=== PATIENT | female | born 1995 | race Hispanic/Latino ===

== ENCOUNTER 2019-06-10 13:02 | Emergency (ER) | payer BC ==
[2019-06-10] MEDS ORDERED: HYDROCODONE/APAP 5/325 MG TAB ONE (15:04)
[2019-06-10] MEDS ORDERED: TETANUS & DIPHTHERIA TOX,ADULT 0.5 ML VIAL ONE (15:29)
--- NOTE | 2019-06-10 15:37 | EDPHYS ---
Physician Documentation [facility] Name: Sunita Avila Age: 23 yrs Sex: Female : 1995 Arrival Date: 06/10/2019 Time: 13:03 Bed 10 Private MD: ED Physician Devante Patton HPI: 06/10 15:08 This 23 yrs old Female presents to ER via Ambulatory with complaints of Toe snw Swelling. 15:08 Onset: The symptoms/episode began/occurred suddenly, 2 day(s) ago, and became snw persistent. Associated signs and symptoms: The patient has no apparent associated signs or symptoms. Modifying factors: The patient symptoms are alleviated by nothing. The patient has not experienced similar symptoms in the past. It is unknown whether or not the patient has recently seen a physician. pt does not recall trauma to area. 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 - Social history:: Smoking status: Patient/guardian denies using tobacco. - Ebola Screening: : Patient denies exposure to infectious person Patient denies travel to an Ebola-affected area in the 21 days before illness onset. ROS: 15:05 Constitutional: Negative for fever, chills, and weight loss, Eyes: Negative for injury, snw pain, redness, and discharge, ENT: Negative for injury, pain, and discharge, Neck: Negative for injury, pain, and swelling, Cardiovascular: Negative for chest pain, palpitations, and edema, Respiratory: Negative for shortness of breath, cough, wheezing, and pleuritic chest pain, Abdomen/GI: Negative for abdominal pain, nausea, vomiting, diarrhea, and constipation, Back: Negative for injury and pain, : Negative for injury, bleeding, discharge, and swelling, MS/Extremity: Negative for injury and deformity, + severe pain to right 2nd toe Skin: Negative for injury, rash, and discoloration, Neuro: Negative for headache, weakness, numbness, tingling, and seizure. Exam: 14:55 Constitutional: This is a well developed, well nourished patient who is awake, alert, snw and in no acute distress. Head/Face: Normocephalic, atraumatic. Eyes: Pupils equal round and reactive to light, extra-ocular motions intact. Lids and lashes normal. Conjunctiva and sclera are non-icteric and not injected. Cornea within normal limits. Periorbital areas with no swelling, redness, or edema. ENT: Nares patent. No nasal discharge, no septal abnormalities noted. Tympanic membranes are normal and external auditory canals are clear. Oropharynx with no redness, swelling, or masses, exudates, or evidence of obstruction, uvula midline. Mucous membranes moist. Neck: Trachea midline, no thyromegaly or masses palpated, and no cervical lymphadenopathy. Supple, full range of motion without nuchal rigidity, or vertebral point tenderness. No Meningismus. Chest/axilla: Normal chest wall appearance and motion. Nontender with no deformity. No lesions are appreciated. Cardiovascular: Regular rate and rhythm with a normal S1 and S2. No gallops, murmurs, or rubs. Normal PMI, no JVD. No pulse deficits. Respiratory: Lungs have equal breath sounds bilaterally, clear to auscultation and percussion. No rales, rhonchi or wheezes noted. No increased work of breathing, no retractions or nasal flaring. Abdomen/GI: Soft, non-tender, with normal bowel sounds. No distension or tympany. No guarding or rebound. No evidence of tenderness throughout. Back: No spinal tenderness. No costovertebral tenderness. Full range of motion. Neuro: Awake and alert, GCS 15, oriented to person, place, time, and situation. Cranial nerves II-XII grossly intact. Motor strength 5/5 in all extremities. Sensory grossly intact. Cerebellar exam normal. Normal gait. Psych: Awake, alert, with orientation to person, place and time. Behavior, mood, and affect are within normal limits. 14:55 Musculoskeletal/extremity: Extremities: grossly normal except: noted in the right second toe: decreased ROM, ecchymosis, erythema, pain, ROM: limited active range of motion due to pain, limited passive range of motion due to pain, Pulses: are normal with no appreciated deficits, Severe pain noted. 14:55 Skin: Appearance: normal except for affected area, cellulitis, that is mild, on the right second toe minimal spread to dorsal foot and tmt of great toe. Vital Signs: 13:26 BP 115 / 79; Pulse 101; Resp 14; Temp 99.2(TE); Pulse Ox 100% on R/A; Weight 56.7 kg; ss Height 5 ft. 1 in. (154.94 cm); Pain 0/10; 13:26 Body Mass Index 23.62 (56.70 kg, 154.94 cm) ss MDM: 13:54 Patient medically screened. jan 15:38 Data reviewed: vital signs, nurses notes. Data interpreted: Pulse oximetry: on room air snw is 100 %. Interpretation: normal. Counseling: I had a detailed discussion with the patient and/or guardian regarding: the historical points, exam findings, and any diagnostic results supporting the discharge/admit diagnosis, radiology results, the need for outpatient follow up, to return to the emergency department if symptoms worsen or persist or if there are any questions or concerns that arise at home. Special discussion: I discussed in detail with the patient the higher chance of wound infection based on his presenting history. Based on the history and exam findings, there is no indication for further emergent testing or inpatient evaluation. I discussed with the patient/guardian the need to see the primary care provider for further evaluation of the symptoms. 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 Exp: ss 06/28/2021. Lot #: [id number]. } Route: IM; Site: right deltoid; 15:51 Follow up: Response: No adverse reaction ss Disposition: 06/10/19 15:36 Discharged to Home. Impression: Cellulitis of right toe. - Condition is Stable. - Discharge Instructions: Cast or Splint Care, Adult, Cellulitis, Adult, VIS, Tetanus, Diphtheria (Td) - CDC, Heat Therapy. - Prescriptions for Clindamycin HCl 300 mg Oral Capsule - take 1 capsule by ORAL route every 6 hours for 10 days; 40 capsule. Ultram 50 mg Oral Tablet - take 1 tablet by ORAL route every 6 hours As needed; 12 tablet. - Medication Reconciliation Form, Thank You Letter, Antibiotic Education, Prescription Opioid Use form. - Follow up: Emergency Department; When: As needed; Reason: Fever > 102 F, Worsening of condition. Follow up: Private Physician; When: 2 - 3 days; Reason: Recheck today's complaints, Continuance of care, Re-evaluation by your physician. Addendum: 06/18/2019 11:03 Co-signature as Attending Physician, Devante Patton MD I agree with the assessment and c mcadams plan of care. Signatures: Dispatcher [employer] EDWY Devante Patton MD MD cha Therrien, Shelly, SAGAR-C WIND UP WORKER-Tsering House RN RN ss Corrections: (The following items were deleted from the chart) 06/10 16:02 15:36 06/10/2019 15:36 Discharged to Home. Impression: Cellulitis of right toe. ss Condition is Stable. Forms are Medication Reconciliation Form, Thank You Letter, Antibiotic Education, Prescription Opioid Use. Follow up: Emergency Department; When: As needed; Reason: Fever > 102 F, Worsening of condition. Follow up: Private Physician; When: 2 - 3 days; Reason: Recheck today's complaints, Continuance of care, Re-evaluation by your physician. snw
--- NOTE | 2019-06-10 15:37 | ER ---
Nurse's Notes [facility] Name: Sunita Avila Age: 23 yrs Sex: Female : 1995 Arrival Date: 06/10/2019 Time: 13:03 Bed 10 Private MD: Diagnosis: Cellulitis of right toe Presentation: 06/10 13:25 Presenting complaint: Patient states: "The other night my toe started hurting and then ss last night it got way worse.". Transition of care: patient was not received from another setting of care. Onset of symptoms was June 09, 2019. Risk Assessment: Do you want to hurt yourself or someone else? Patient reports no desire to harm self or others. Initial Sepsis Screen: Does the patient meet any 2 criteria? No. Patient's initial sepsis screen is negative. Does the patient have a suspected source of infection? No. Patient's initial sepsis screen is negative. Care prior to arrival: None. 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 - Social history:: Smoking status: Patient/guardian denies using tobacco. - Ebola Screening: : Patient denies exposure to infectious person Patient denies travel to an Ebola-affected area in the 21 days before illness onset. Screenin:37 Abuse screen: Denies threats or abuse. Denies injuries from another. Nutritional ss screening: No deficits noted. Tuberculosis screening: Never had TB. Fall Risk None identified. Assessment: 13:55 General: Appears in no apparent distress. comfortable, Behavior is calm, cooperative, ss Denies fever, feeling ill, fatigue, chills. Pain: Complains of pain in right second toe Pain currently is 0 out of 10 on a pain scale. at worst was 10 out of 10 on a pain scale. Quality of pain is described as tender, Pain began 1 day ago. Is continuous, Aggravated by walking. Neuro: Level of Consciousness is awake, alert, obeys commands, Oriented to person, place, time, situation. Cardiovascular: Pulses are palpable in right dorsalis pedis artery and left dorsalis pedis artery. Respiratory: Airway is patent Respiratory effort is even, unlabored, Respiratory pattern is regular, symmetrical. GI: Patient currently denies diarrhea, nausea, tolerance of food, vomiting. EENT: Nares are clear Oral mucosa is moist. Derm: small area of redness to R second toe. Vital Signs: 13:26 BP 115 / 79; Pulse 101; Resp 14; Temp 99.2(TE); Pulse Ox 100% on R/A; Weight 56.7 kg; ss Height 5 ft. 1 in. (154.94 cm); Pain 0/10; 13:26 Body Mass Index 23.62 (56.70 kg, 154.94 cm) ss ED Course: 13:03 Patient arrived in ED. as 13:26 Triage completed. ss 13:26 Arm band placed on right wrist. ss 13:50 Natalia Sheridan FNP-C is PHCP. snw 13:50 Devante Patton MD is Attending Physician. snw 14:36 Tsering Layne RN is Primary Nurse. ss 14:37 Patient has correct armband on for positive identification. Bed in low position. Call ss light in reach. 15:30 Foot Right 3 View XRAY In Process Unspecified. EDMS 16:01 No provider procedures requiring assistance completed. Patient did not have IV access ss during this emergency room visit. Ortho shoe applied to right foot. 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 Exp: ss 06/28/2021. Lot #: [id number]. } Route: IM; Site: right deltoid; 15:51 Follow up: Response: No adverse reaction ss Outcome: 15:36 Discharge ordered by . snw 16:01 Discharged to home ambulatory, with family. ss 16:01 Condition: good 16:01 Discharge instructions given to patient, family, Instructed on discharge instructions, follow up and referral plans. medication usage, Demonstrated understanding of instructions, follow-up care, medications, Prescriptions given X 2. 16:02 Patient left the ED. ss Signatures: Dispatcher [employer] EDNatalia Nunez, GAS BLENDER-C GAS BLENDER-Andreww Soledad Tomlinson Shelby, RN RN ss
--- NOTE | 2019-06-10 15:40 | RAD REPORT ---
EXAM DESCRIPTION: RAD - Foot Right 3 View - 06/10/2019 3:33 pm CLINICAL HISTORY: Right foot pain FINDINGS: No fracture or dislocation is seen No bone or joint abnormality
[2019-06-10 16:36] VITALS: BP 115/79; TEMP 99.2; O2SAT 100
== END 2019-06-10 16:02 | disposition home or self-care (01) ==
LOC: ER 13:02
DX: L03.031 Cellulitis of right toe (principal); Z88.6 Allergy status to analgesic agent; Z23 Encounter for immunization
CPT/HCPCS: 90471; 90714; 99284

== ENCOUNTER 2021-01-07 13:33 | Emergency (ER) | payer BC ==
[2021-01-07 14:43] LABS: Urine Blood Negative (Negative); Urine Glucose Negative (Negative); Urine Protein Negative (Negative); Urine Specific Gravity >=1.030 (1.005-1.030); Urine pH 6.5 (5.0-7.0)
[2021-01-07 15:18] LABS: Urine Specific Gravity/Preg >1.030 (1.005-1.030)
[2021-01-07 17:32] LABS: Absolute Lymphocytes (CBC) 2.4 K/uL (0.7-4.9); Basophils % 0.6 % (0-1.3); Lymphocytes % 31.7 % (15.3-44.8); MPV 7.6 fL (7.6-11.3); RBC Red Blood Cell Count 4.62 M/uL (3.86-4.86)
--- NOTE | 2021-01-07 17:56 | RAD REPORT ---
EXAM DESCRIPTION: CTAbdomen Pelvis W Contrast - 01/07/2021 5:46 pm CLINICAL HISTORY: Abdominal pain. abd pain COMPARISON: No comparisons TECHNIQUE: Biphasic CT imaging of the abdomen and pelvis was performed with 100 ml non-ionic IV cont rast. All CT scans are performed using dose optimization technique as appropriate and may include automated exposure control or mA/KV adjustment according to patient size. FINDINGS: The lung bases are clear. The liver, spleen, pancreas, adrenal glands and kidneys are within normal limits. No bowel obstruction or free air, or abscess. Small volume of prior free fluid. The appendix is norm al. No evidence of significant lymphadenopathy. No suspicious bony findings. IMPRESSION: No acute intra-abdominal or pelvic finding. Pelvic free fluid which is likely physiologi c.
[2021-01-07 17:59] LABS: ALT/SGPT 18 U/L (12-78); AST/SGOT 10 U/L (15-37); Albumin 4.1 g/dL (3.4-5.0); Alkaline Phosphatase 86 U/L (45-117); BUN Blood Urea Nitrogen 16 mg/dL (7-18); Bicarbonate 28 mmol/L (21-32); Bilirubin Direct 0.1 mg/dL (0-0.2); Bilirubin Total 0.4 mg/dL (0.2-1.0); Glucose Level 92 mg/dL (74-106); Lipase 95 U/L (73-393); Potassium 3.8 mmol/L (3.5-5.1); Protein, Total 7.6 g/dL (6.4-8.2); Sodium Level 139 mmol/L (136-145)
--- NOTE | 2021-01-07 18:04 | EDPHYS ---
Physician Documentation [facility] Name: Sunita Avila Age: 25 yrs Sex: Female : 1995 Arrival Date: 01/07/2021 Time: 13:34 Bed 27 Private MD: ED Physician Mario Andrade HPI: 01/07 17:54 This 25 yrs old Female presents to ER via Ambulatory with complaints of kb Abdominal Pain - RLQ. 17:54 The patient presents with abdominal pain right lower quadrant. Onset: The kb symptoms/episode began/occurred 4 day(s) ago. The symptoms do not radiate. Associated signs and symptoms: Pertinent positives: diarrhea, nausea, Pertinent negatives: fever. The symptoms are described as constant. Modifying factors: The symptoms are alleviated by nothing, the symptoms are aggravated by nothing. Severity of pain: At its worst the pain was moderate in the emergency department the pain is unchanged. The patient has not experienced similar symptoms in the past. The patient has not recently seen a physician. Patient reports right lower quadrant pain for 4 days. Pain better with pressure to area. Reports slight nausea and diarrhea denies fever and vomiting.. 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 - Social history:: Smoking status: Reported history of juuling and/or vaping. Patient uses alcohol, weekly. ROS: 17:52 Constitutional: Negative for fever, chills, and weight loss. kb 17:52 Abdomen/GI: Positive for abdominal pain, nausea, diarrhea, Negative for vomiting. 17:52 All other systems are negative. Exam: 17:53 Constitutional: This is a well developed, well nourished patient who is awake, alert, kb and in no acute distress. Head/Face: Normocephalic, atraumatic. ENT: Moist Mucous membranes Cardiovascular: Regular rate and rhythm with a normal S1 and S2. No gallops, murmurs, or rubs. No pulse deficits. Respiratory: Respirations even and unlabored. No increased work of breathing, no retractions or nasal flaring. Skin: Warm, dry with normal turgor. Normal color. MS/ Extremity: Pulses equal, no cyanosis. Neurovascular intact. Full, normal range of motion. Neuro: Awake and alert, GCS 15, oriented to person, place, time, and situation. Moves all extremities. Normal gait. Psych: Awake, alert, with orientation to person, place and time. Behavior, mood, and affect are within normal limits. 17:53 Abdomen/GI: Inspection: abdomen appears normal, Bowel sounds: normal, Palpation: soft, in all quadrants, mild abdominal tenderness, in the right lower quadrant, Indicators: Rovsing's sign is positive. Vital Signs: 14:07 BP 112 / 71; Pulse 99; Resp 20; Temp 98.5(TE); Pulse Ox 100% on R/A; Weight 60.5 kg kg (M); Height 5 ft. 1 in. (154.94 cm) (R); Pain 5/10; 17:05 BP 123 / 81; Pulse 80; Resp 14; Pulse Ox 100% ; vg1 14:07 Body Mass Index 25.20 (60.50 kg, 154.94 cm) kg MDM: 16:51 Patient medically screened. kb 17:52 Data reviewed: vital signs, nurses notes. Data interpreted: Pulse oximetry: on room air kb is 100 %. Interpretation: normal. 18:03 Counseling: I had a detailed discussion with the patient and/or guardian regarding: the kb historical points, exam findings, and any diagnostic results supporting the discharge/admit diagnosis, lab results, radiology results, the need for outpatient follow up, a family practitioner, an OB/Gyne specialist, to return to the emergency department if symptoms worsen or persist or if there are any questions or concerns that arise at home. ED course: Pt refuses transvaginal US at this time. States she will follow up with SEISMIC PROSPECTING SUPERVISOR. 01/07 14:43 Order name: Urine Dipstick-Ancillary; Complete Time: 16:51 EDMS 01/07 14:55 Order name: Urine --Ancillary (enter results); Complete Time: 16:51 bd 01/07 16:51 Order name: Basic Metabolic Panel; Complete Time: 18:00 kb 01/07 16:51 Order name: CBC with Diff; Complete Time: 17:35 kb 01/07 16:51 Order name: Hepatic Function; Complete Time: 18:00 kb 01/07 16:51 Order name: Lipase; Complete Time: 18:00 kb 01/07 16:51 Order name: IV Saline Lock; Complete Time: 17:26 kb 01/07 16:51 Order name: Labs collected and sent; Complete Time: 17:26 kb 01/07 17:16 Order name: Abdomen ; Complete Time: 17:58 EDMS Administered Medications: No medications were administered Disposition: 18:38 Co-signature as Attending Physician, Mario Andrade MD. rn Disposition Summary: 01/07/21 18:03 Discharge Ordered Location: Home kb Condition: Stable kb Diagnosis - Abdominal pain, unspecified kb Followup: kb - With: Emergency Department - When: As needed - Reason: Worsening of condition Followup: kb - With: Private Physician - When: 2 - 3 days - Reason: Recheck today's complaints, Continuance of care, Re-evaluation by your physician Discharge Instructions: - Discharge Summary Sheet kb - Abdominal Pain, Adult, [id number] kb Forms: - Medication Reconciliation Form kb - Thank You Letter kb - Antibiotic Education kb - Prescription Opioid Use kb Signatures: Dispatcher [employer] EDMS Geraldine Weller, CUSTOMER GREETER-C CUSTOMER GREETER-Ckb Mario Andrade MD MD rn Graham, Kristen, RN RN kg Corrections: (The following items were deleted from the chart) 17:27 17:15 Abdomen Pelvis W Con+CT.RAD.BRZ ordered. EDMS EDMS
--- NOTE | 2021-01-07 18:04 | ER ---
Nurse's Notes [facility] Name: Sunita Avila Age: 25 yrs Sex: Female : 1995 Arrival Date: 01/07/2021 Time: 13:34 Bed 27 Private MD: Diagnosis: Abdominal pain, unspecified Presentation: 01/07 14:07 Chief complaint: Patient states: Right sided abdominal pain and diarrhea x 4 days. kg Coronavirus screen: Client denies travel out of the [place] in the last 14 days. At this time, unable to obtain information related to travel outside the [place] At this time, the client does not indicate any symptoms associated with coronavirus-19. Ebola Screen: Patient negative for fever greater than or equal to 101.5 degrees Fahrenheit, and additional compatible Ebola Virus Disease symptoms Patient denies exposure to infectious person. Patient denies travel to an Ebola-affected area in the 21 days before illness onset. Initial Sepsis Screen: Does the patient meet any 2 criteria? No. Patient's initial sepsis screen is negative. Does the patient have a suspected source of infection? No. Patient's initial sepsis screen is negative. Risk Assessment: Do you want to hurt yourself or someone else? Patient reports no desire to harm self or others. Onset of symptoms was January 03, 2021. 14:07 Method Of Arrival: Ambulatory kg 14:07 Acuity: JEROMY 3 kg Triage Assessment: 14:08 General: Appears in no apparent distress. Behavior is calm, cooperative, appropriate kg for age, quiet. Pain: Complains of pain in right upper quadrant and right lower quadrant Pain currently is 5 out of 10 on a pain scale. at worst was 8 out of 10 on a pain scale. level that patient reports is acceptable is 3 out of 10 on a pain scale. Quality of pain is described as sharp, Alleviated by Applying pressure helps. GI: Reports lower abdominal pain, upper abdominal pain, diarrhea. 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 - Social history:: Smoking status: Reported history of juuling and/or vaping. Patient uses alcohol, weekly. Screenin:11 Abuse screen: Denies threats or abuse. Denies injuries from another. Nutritional kg screening: No deficits noted. Tuberculosis screening: No symptoms or risk factors identified. Fall Risk None identified. No fall in past 12 months (0 pts). No secondary diagnosis (0 pts). No IV (0 pts). Ambulatory Aid- None/Bed Rest/Nurse Assist (0 pts). Gait- Normal/Bed Rest/Wheelchair (0 pts) Mental Status- Oriented to own ability (0 pts). Total Freeman Fall Scale indicates No Risk (0-24 pts). Assessment: 17:04 General: Appears in no apparent distress. comfortable, Behavior is calm, cooperative. vg1 Pain: Complains of pain in right lower quadrant Pain currently is 4 out of 10 on a pain scale. Neuro: Level of Consciousness is awake, alert, obeys commands, Oriented to person, place, time, situation. Cardiovascular: Patient's skin is warm and dry. Respiratory: Airway is patent Respiratory effort is even, unlabored. GI: Bowel sounds present X 4 quads. Abd is soft and non tender X 4 quads. Reports diarrhea, nausea. : No signs and/or symptoms were reported regarding the genitourinary system. EENT: No signs and/or symptoms were reported regarding the EENT system. Derm: Skin is intact, is healthy with good turgor. Musculoskeletal: Circulation, motion, and sensation intact. Vital Signs: 14:07 BP 112 / 71; Pulse 99; Resp 20; Temp 98.5(TE); Pulse Ox 100% on R/A; Weight 60.5 kg kg (M); Height 5 ft. 1 in. (154.94 cm) (R); Pain 5/10; 17:05 BP 123 / 81; Pulse 80; Resp 14; Pulse Ox 100% ; vg1 14:07 Body Mass Index 25.20 (60.50 kg, 154.94 cm) kg ED Course: 13:34 Patient arrived in ED. am2 14:08 Triage completed. kg 14:11 Patient has correct armband on for positive identification. kg 16:51 Geraldine Weller [facility]-C [facility] kb 16:51 Mario Andrade MD is Attending Physician. kb 16:57 Kelley Avila, RN is Primary Nurse. vg1 17:05 Arm band placed on. vg1 17:26 Initial lab(s) drawn, by me, sent to lab. Inserted saline lock: 20 gauge in right vg1 antecubital area, using aseptic technique. Blood collected. 17:46 Abdomen In Process Unspecified. EDMS Administered Medications: No medications were administered Outcome: 18:03 Discharge ordered by . kb 18:38 Patient left the ED. vg1 Signatures: Dispatcher [employer] EDMS Geraldine Weller FNP-C FNP-Chiquis Last am2 Kelley Avila, RN RN vg1 Mariia Rod, RN RN kg
[2021-01-08 14:11] VITALS: TEMP 98.5; O2SAT 100
[2021-01-08 14:13] VITALS: BP 123/81
== END 2021-01-07 18:38 | disposition home or self-care (01) ==
LOC: ER 13:33
DX: R10.31 Right lower quadrant pain (principal); Z88.6 Allergy status to analgesic agent
CPT/HCPCS: 85025; 80048; 36415; 81025; 82565; 80076; 81003; 83690; 74177; 99283; Q9967

== ENCOUNTER 2021-06-08 15:35 | Emergency (ER) | payer BC ==
[2021-06-08 18:23] LABS: BUN Blood Urea Nitrogen 9 mg/dL (7-18); Bicarbonate 25 mmol/L (21-32); Glucose Level 91 mg/dL (74-106); Potassium 3.8 mmol/L (3.5-5.1); Sodium Level 137 mmol/L (136-145)
[2021-06-08 18:24] LABS: Absolute Lymphocytes (CBC) 2.8 K/uL (0.7-4.9); Hematocrit 45.5 % (36.0-45.0); Lymphocytes % 43.3 % (15.3-44.8); MPV 8.1 fL (7.6-11.3); RBC Red Blood Cell Count 5.12 M/uL (3.86-4.86)
[2021-06-08] MEDS ORDERED: NA CHLORIDE 0.9% 500 ML ONE (18:30)
[2021-06-08] MEDS ORDERED: NA CHLORIDE 0.9% 1,000 ML ONE (18:32)
--- NOTE | 2021-06-08 19:06 | EDPHYS ---
Physician Documentation [facility] Name: Sunita Avila Age: 25 yrs Sex: Female : 1995 Arrival Date: 06/08/2021 Time: 15:38 Bed 14 Private MD: ED Physician Devante Patton HPI: 06/08 18:42 This 25 yrs old Female presents to ER via Ambulatory with complaints of kb Covid+,Flu+, Chest Pain. 18:42 The patient or guardian reports cough, that is intermittent, described as mild. Onset: kb The symptoms/episode began/occurred last week. Severity of symptoms: At their worst the symptoms were mild, in the emergency department the symptoms are unchanged. Modifying factors: The symptoms are alleviated by nothing, the symptoms are aggravated by nothing. Associated signs and symptoms: Pertinent positives: chest pain, Pertinent negatives: diarrhea, ear ache, fever, nausea, rhinorrhea, sore throat, vomiting. The patient has not experienced similar symptoms in the past. The patient has been recently seen by a physician:. Pt states she is positive for covid and flu. Today had a pain to right chest so came in to make sure everything was ok. 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 - Social history:: Smoking status: Patient denies any tobacco usage or history of. Patient uses alcohol, occasionally. ROS: 18:42 Constitutional: Negative for fever, chills, and weight loss. kb 18:42 Cardiovascular: Positive for chest pain, of the anterior aspect of right upper chest, Negative for edema, orthopnea, palpitations, paroxysmal nocturnal dyspnea. 18:42 All other systems are negative. Exam: 18:42 Constitutional: This is a well developed, well nourished patient who is awake, alert, kb and in no acute distress. Head/Face: Normocephalic, atraumatic. ENT: Moist Mucous membranes Cardiovascular: Regular rate and rhythm with a normal S1 and S2. No gallops, murmurs, or rubs. No pulse deficits. Respiratory: Respirations even and unlabored. No increased work of breathing. Talking in full sentences Skin: Warm, dry with normal turgor. Normal color. MS/ Extremity: Pulses equal, no cyanosis. Neurovascular intact. Full, normal range of motion. Neuro: Awake and alert, GCS 15, oriented to person, place, time, and situation. Moves all extremities. Normal gait. Psych: Awake, alert, with orientation to person, place and time. Behavior, mood, and affect are within normal limits. Vital Signs: 17:43 BP 137 / 94; Pulse 102; Resp 18; Temp 98.8(TE); Pulse Ox 100% on R/A; Weight 58.06 kg; ap3 Height 5 ft. 1 in. (154.94 cm); 17:43 Body Mass Index 24.19 (58.06 kg, 154.94 cm) ap3 MDM: 17:54 Patient medically screened. kb 18:41 Data reviewed: vital signs, nurses notes. Data interpreted: Pulse oximetry: on room air kb is 100 %. Interpretation: normal. Counseling: I had a detailed discussion with the patient and/or guardian regarding: the historical points, exam findings, and any diagnostic results supporting the discharge/admit diagnosis, lab results, radiology results, the need for outpatient follow up, a family practitioner, to return to the emergency department if symptoms worsen or persist or if there are any questions or concerns that arise at home. 06/08 17:55 Order name: CBC with Diff; Complete Time: 18:27 06/08 17:55 Order name: Basic Metabolic Panel; Complete Time: 18:27 06/08 17:55 Order name: D-Dimer; Complete Time: 18:15 06/08 18:35 Order name: Chest Single View XRAY 06/08 17:55 Order name: IV Start 06/08 17:55 Order name: EKG; Complete Time: 17:55 06/08 17:55 Order name: EKG - Nurse/Tech kb Administered Medications: 18:35 Drug: NS 0.9% 1000 ml Route: IV; Rate: 1000 ml; Site: left antecubital; kb Disposition: 06/09 13:00 Co-signature as Attending Physician, Devante Patton MD I agree with the assessment and jan plan of care. Disposition Summary: 06/08/21 19:05 Discharge Ordered Location: Home kb Condition: Stable kb Diagnosis - Coronavirus infection, unspecified kb - Chest pain, unspecified kb Followup: kb - With: Emergency Department - When: As needed - Reason: Worsening of condition Followup: kb - With: Private Physician - When: 2 - 3 days - Reason: Recheck today's complaints, Continuance of care, Re-evaluation by your physician Discharge Instructions: - Discharge Summary Sheet kb - Viral Respiratory Infection, [id number] kb - COVID-19 kb Forms: - Medication Reconciliation Form kb - Thank You Letter kb - Antibiotic Education kb - Prescription Opioid Use kb Signatures: Dispatcher [employer] EDMS Geraldine Weller, ARCHITECTURE CONSULTANT-C ARCHITECTURE CONSULTANT-Devante Barone MD MD cha Prokisch, Amanda, RN RN ap3 Corrections: (The following items were deleted from the chart) 06/08 18:37 17:55 Chest Pa And Lat (2 Views)+RAD.[email or web address].[email or web address] ordered. EDNH EDNH
--- NOTE | 2021-06-08 19:06 | ER ---
Nurse's Notes [facility] [place], [place] Name: Sunita Avila Age: 25 yrs Sex: Female : 1995 Arrival Date: 06/08/2021 Time: 15:38 Bed 14 Private MD: Diagnosis: Coronavirus infection, unspecified;Chest pain, unspecified Presentation: 06/08 17:43 Chief complaint: Patient states: she tested positive for the flu and covid last week. ap3 Patient states she has developed chest pain, and wants to make sure everything is okay. Coronavirus screen: Client reports previous positive COVID test result. Ebola Screen: No symptoms or risks identified at this time. Initial Sepsis Screen: Does the patient meet any 2 criteria? No. Patient's initial sepsis screen is negative. Does the patient have a suspected source of infection? No. Patient's initial sepsis screen is negative. Risk Assessment: Do you want to hurt yourself or someone else? Patient reports no desire to harm self or others. Onset of symptoms was June 01, 2021. 17:43 Method Of Arrival: Ambulatory ap3 17:43 Acuity: JEROMY 3 ap3 Triage Assessment: 17:46 General: Appears in no apparent distress. Behavior is calm, cooperative. Pain: ap3 Complains of pain in chest Pain began today. Neuro: Level of Consciousness is awake, alert, obeys commands, Oriented to person, place, time, situation, Appropriate for age Speech is normal. Cardiovascular: Patient's skin is warm and dry. Respiratory: Airway is patent Respiratory effort is even, unlabored, Respiratory pattern is regular, symmetrical. 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 - Social history:: Smoking status: Patient denies any tobacco usage or history of. Patient uses alcohol, occasionally. Screenin:48 Abuse screen: Denies threats or abuse. Nutritional screening: No deficits noted. ap3 Tuberculosis screening: No symptoms or risk factors identified. Vital Signs: 17:43 BP 137 / 94; Pulse 102; Resp 18; Temp 98.8(TE); Pulse Ox 100% on R/A; Weight 58.06 kg; ap3 Height 5 ft. 1 in. (154.94 cm); 17:43 Body Mass Index 24.19 (58.06 kg, 154.94 cm) ap3 ED Course: 15:38 Patient arrived in ED. mr 17:45 Triage completed. ap3 17:47 Patient maintains SpO2 saturation greater than 95% on room air. ap3 17:48 Arm band placed on right wrist. ap3 17:54 Geraldine Weller FNP-C is PHCP. kb 17:54 Devante Patton MD is Attending Physician. kb 19:15 Chest Single View XRAY In Process Unspecified. EDMS Administered Medications: 18:35 Drug: NS 0.9% 1000 ml Route: IV; Rate: 1000 ml; Site: left antecubital; kb Outcome: 19:05 Discharge ordered by . kb 19:18 Patient left the ED. kb Signatures: Dispatcher [employer] EDMS Geraldine Weller FNP-C FNP-Ckb Rivera, Mary mr RuggieroChiquis, RN RN ap3
[2021-06-08 19:22] VITALS: BP 137/94; TEMP 98.8; O2SAT 100
--- NOTE | 2021-06-08 19:22 | RAD REPORT ---
EXAM DESCRIPTION: RAD - Chest Single View - 06/08/2021 7:15 pm CLINICAL HISTORY: Cough;Congestion;Chest pain Chest pain. COMPARISON: CHEST SINGLE VIEW dated 05/25/2012 FINDINGS: Portable technique limits examination quality. Interstitial opacities are mildly prominent suggesting viral infection. The heart is normal in size. No displaced fractures.
== END 2021-06-08 19:18 | disposition home or self-care (01) ==
LOC: ER 15:35
DX: U07.1 COVID-19 (principal); Z88.6 Allergy status to analgesic agent
CPT/HCPCS: 93005; 85025; 80048; 36415; 85379; 71045; 99284; J7040; J7030